=== PATIENT | female | born 1955 | race Caucasian/White ===

== ENCOUNTER → 2024-02-29 09:04 | Day surgery (SDC) | payer MEDICARE, OTHER, SELFPAY ==
[2024-02-29 10:00] VITALS: BMI 43.5
== END ==
LOC: CATH 09:04
PROVIDERS: ATTENDING PHYSICIAN Internal Medicine; FAMILY PHYSICIAN Internal Medicine; OTHER PHYSICIAN Internal Medicine Cardiovascular Disease
DX: I48.0 Paroxysmal atrial fibrillation (principal); I10 Essential (primary) hypertension; E78.00 Pure hypercholesterolemia, unspecified; R06.02 Shortness of breath; Z79.01 Long term (current) use of anticoagulants
CPT/HCPCS: 92960; 93005

== ENCOUNTER 2024-04-24 13:30 | Emergency (ER) | payer MEDICARE, OTHER, SELFPAY ==
[2024-04-24] VITALS (16 sets, daily range): BP systolic 110–164; BP diastolic 49–143
[2024-04-24 13:50] LABS: % Basophils 0.4 % (0-2); % Eosinophils 0.9 % (0-6); % Immature Granulocytes 0.4 % (0-0.5); % Lymphocytes 23.2 % (20.5-51.1); % Monocytes 11.2 % (1.7-9.3); % Neutrophils 63.9 % (42.2-75.2); Absolute Eosinophils 0.1 10^3/uL (0-0.7); Absolute Lymphocytes 1.8 10^3/uL (1.2-3.4); Absolute Monocytes 0.9 10^3/uL (0.1-0.6); Hematocrit 38.7 % (37.0-47.0); Hemoglobin 13.4 g/dL (12.0-16.0); Mean Corp Hgb Conc. 34.6 g/dL (33.0-37.0); Mean Corpuscular Hgb 27.4 pg (27.0-31.0); Mean Corpuscular Volume 79.1 fL (81.0-99.0); Mean Platelet Volume 10.2 fL (7.4-10.4); Nucleated Red Blood Cells % 0 %; Platelet Count 304 10^3/uL (130-400); Red Blood Cell Count 4.89 10^6/uL (4.20-5.40); Red Cell Dist. Width 14.4 % (11.5-14.5); White Blood Cell Count 7.8 10^3/uL (4.8-10.8)
[2024-04-24 14:09] LABS: ALT (SGPT) 22 U/L (0-35); AST (SGOT) 22 U/L (14-36); Albumin 4.2 g/dl (3.5-5.0); Alkaline Phosphatase 113 U/L (38-126); Blood Urea Nitrogen 13 mg/dl (7-17); Calcium 9.8 mg/dl (8.4-10.2); Carbon Dioxide 24 mmol/L (22-30); Chloride 106 mmol/L (98-107); Glucose 116 mg/dl (70-99); Sodium 140 mmol/L (135-145); Total Bilirubin 0.5 mg/dl (0.2-1.3); Total Protein 6.8 g/dl (6.3-8.2); eGFR > 60.00
--- NOTE | 2024-04-24 16:28 | ED.GENMED ---
History of Present Illness
<Angy Menezes PA-C - Last Filed: 04/24/24 20:21>
General
Chief Complaint: Heart Rate Problem
Source: patient
Exam Limitations: none
Time Seen by Provider: 04/24/24 16:27
Travel History
Have you had any contact with someone who has COVID-19?: No
Do you have any symptoms of coronavirus? Fever > 100 degrees, chills, cough, shortness of breath, sore throat, loss of taste or smell, muscle aches, or headache?: No
History of Present Illness
History of Present Illness:
68-year-old female with past medical history of paroxysmal A-fib on Eliquis, CHF on Lasix, asthma presenting emergency department today with concerns of exertional shortness of breath for the past week. Patient states that she is no shortness of
breath at rest. Patient states that she feels this way when she is in A-fib. Patient went in A-fib for the first time last year. She had some heart failure at that time as well. Patient has been on Lasix ever since. Patient states that she has
had a dry cough and chills but no fever, no chest pain. Patient denies any runny nose or sore throat. Patient states that occasionally she is able to feel some palpitations. Patient denies any increase in her lower extremity swelling. Patient is
social alcohol use, denies daily alcohol use.
Review of Systems
<Angy Menezes PA-C - Last Filed: 04/24/24 20:21>
Review of Systems
All Other Systems: ROS reviewed and negative except as documented in HPI and ROS
Phy Exam
<Angy Menezes PA-C - Last Filed: 04/24/24 20:21>
Physical Exam
Physical Exam:
General: Patient is well appearing and in no acute distress; non-toxic
Skin: Warm and dry, no rashes or lesions
Head: Normocephalic, atraumatic
Eyes: Sclera non-icteric. EOMs intact.
Cardiac: Heart rate is irregularly irregular
Peripheral Vascular: Mild pitting edema noted to ankles bilaterally. 2+ dorsalis pedis pulses noted bilaterally
Pulm: Increased respiratory rate but no respiratory distress. Patient is not hypoxic. No wheezes, rales, rhonchi noted on exam.
Abdomen: No abdominal tenderness
Neuro: CN II-XII intact, no focal neurologic deficits.
Psychiatric: Appropriate mood and affect.
Course
<Angy Menezes PA-C - Last Filed: 04/24/24 20:21>
Orders/Labs/Results
Orders:
Orders
04/24/24 13:33
Electrocardiogram (*1) Urgent
Reason for Study: Palpitations
EKG- Treatment ONCE
04/24/24 13:41
Complete Blood Count/With Diff Urgent
Comprehensive Metabolic Panel Urgent
04/24/24 16:44
CR Chest - 2 Views Urgent
Comment:
Reason For Exam: shortness of breath
04/24/24 16:52
Diltiazem HCl [Cardizem] 10 mg IV NOW STA
04/24/24 17:00
Diltiazem 125 mg/125 ml Nss [Cardizem] 125 mg in 125 ml IV PER PROTOCOL
Initial dose in mg/hr, then titrate:: 5
Titrate to keep:: Heart rate 80-100 bpm
Titrate by mg/hr:: 5 mg/hr
Frequency of titrations (minutes):: 15
Maximum dose in mg/hr:: 15
04/24/24 17:15
NT-proBNP Urgent
Troponin I Urgent
04/24/24 17:32
Add On- LAB Urgent
Tests Added?: troponin
04/24/24 18:52
ASA Classification Routine
Propofol [Diprivan] 50 mg IV NOW STA
04/24/24 19:53
Electrocardiogram (*1) Urgent
Reason for Study: Abnormal EKG
EKG- Treatment ONCE
Abnormal Lab Results
04/24/24
13:41
MCV 79.1 L fL
(81.0-99.0)
Absolute Monos (auto) 0.9 H 10^3/uL
(0.1-0.6)
Monocytes % 11.2 H %
(1.7-9.3)
Glucose 116 H mg/dl
(70-99)
04/24/24 13:41
04/24/24 13:41
Vital Signs
Initial and Last Documented VS:
Initial Vital Signs
Temp Pulse Resp Pulse Ox
98.9 F 104 18 97
04/24/24 13:32 04/24/24 13:32 04/24/24 13:32 04/24/24 13:32
Last Documented Vital Signs
Temp Pulse Resp BP Pulse Ox
98.6 F 120 21 142/101 98
04/24/24 19:49 04/24/24 19:49 04/24/24 19:49 04/24/24 19:49 04/24/24 19:49
<Odell Dalton, DO - Last Filed: 04/24/24 20:14>
Orders/Labs/Results
Orders:
Orders
04/24/24 13:33
Electrocardiogram (*1) Urgent
Reason for Study: Palpitations
EKG- Treatment ONCE
04/24/24 13:41
Complete Blood Count/With Diff Urgent
Comprehensive Metabolic Panel Urgent
04/24/24 16:44
CR Chest - 2 Views Urgent
Comment:
Reason For Exam: shortness of breath
04/24/24 16:52
Diltiazem HCl [Cardizem] 10 mg IV NOW STA
04/24/24 17:00
Diltiazem 125 mg/125 ml Nss [Cardizem] 125 mg in 125 ml IV PER PROTOCOL
Initial dose in mg/hr, then titrate:: 5
Titrate to keep:: Heart rate 80-100 bpm
Titrate by mg/hr:: 5 mg/hr
Frequency of titrations (minutes):: 15
Maximum dose in mg/hr:: 15
04/24/24 17:15
NT-proBNP Urgent
Troponin I Urgent
04/24/24 17:32
Add On- LAB Urgent
Tests Added?: troponin
04/24/24 18:52
ASA Classification Routine
Propofol [Diprivan] 50 mg IV NOW STA
04/24/24 19:53
Electrocardiogram (*1) Urgent
Reason for Study: Abnormal EKG
EKG- Treatment ONCE
Abnormal Lab Results
04/24/24
13:41
MCV 79.1 L fL
(81.0-99.0)
Absolute Monos (auto) 0.9 H 10^3/uL
(0.1-0.6)
Monocytes % 11.2 H %
(1.7-9.3)
Glucose 116 H mg/dl
(70-99)
04/24/24 13:41
04/24/24 13:41
Vital Signs
Initial and Last Documented VS:
Initial Vital Signs
Temp Pulse Resp Pulse Ox
98.9 F 104 18 97
04/24/24 13:32 04/24/24 13:32 04/24/24 13:32 04/24/24 13:32
Last Documented Vital Signs
Temp Pulse Resp BP Pulse Ox
98.6 F 120 21 142/101 98
04/24/24 19:49 04/24/24 19:49 04/24/24 19:49 04/24/24 19:49 04/24/24 19:49
Procedures
<Angy Menezes PA-C - Last Filed: 04/24/24 20:21>
Cardioversion
Indication:: Afib
Performed by:: Odell Dalton DO
Synchronized?: Yes
Energy Used: 150 joules
Number of attempts: 1
Successful?: Yes
ASA Risk Score: Class II
Any reaction or bad outcome to prior sedation/anesthesia?: No history of a reaction
Sedation level to be attained: moderate
Chart and allergies reviewed: Yes
Patient reassessed prior to sedation: Yes
Time out completed at (validating right patient & procedure): 19:47
History of difficult intubation: No
Airway free of obstruction: No
Patient has a gag reflex: Yes
Patient is able to open mouth: Yes
Patient has no dentures: Yes
Patient has no loose teeth: Yes
Medication administered by Provider during Moderate Sedation: IV Propofol (mg)
Total dose administered: 60
Time drug administered: 19:49
Start Time: 19:49
Stop Time: 19:59
<Angy Menezes PA-C - Last Filed: 04/24/24 20:21>
MDM/Problems Addressed
Differential Diagnosis Includes:
Differentials include atrial fibrillation, a flutter, sinus tachycardia, asthma exacerbation, CHF exacerbation
MDM/Problems Addressed:
shortness of breath
Chronic conditions affecting care:
A-fib on Eliquis, CHF on Lasix
<Angy Menezes PA-C - Last Filed: 04/24/24 20:21>
*Pulse Oximetry
Patient hypoxic: no
*Rn Clinical Quality Interpretation
Rate: tachycardiac
Interpretation: abnormal
Heart Rate: 120
Rhythm: a-fib
<Odell Dalton DO - Last Filed: 04/24/24 20:14>
*Critical Care Note
Total Time (30-74mins, 75-104mins- exclusive of procedures): 35
comment:
Critical care statement: A total of 35 minutes of critical care time was provided for this patient. This includes management of unstable vital signs, evaluation of the patient at bedside, reviewing the patient's pertinent medical records, discussion
with consultants, review of old EKGs and review of pertinent medical records. This time with separate from time utilized to perform the aforementioned documented procedures
<Angy Menezes PA-C - Last Filed: 04/24/24 20:21>
Patient Management
Escalation/DeEscalation of care consider admission/obs:
68-year-old female with past medical history of paroxysmal A-fib on Eliquis, CHF on Lasix presenting emergency department today due to shortness of breath. Patient states that she gets short of breath with exertion and when she goes into A-fib.
Patient noticed that on her Apple Watch she her rate was high. Patient was found to be in A-fib with RVR here. Heart rate remained in the 120s to 130s despite diltiazem drip. Patient follows with Dr. Granados. Patient has a history of [address] Sky was consulted and recommends a cardioversion again and then will follow-up for likely repeat ablation.
ED Attending Note
<Angy Menezes PA-C - Last Filed: 04/24/24 20:21>
-
Portions of this chart may have been created with voice recognition software.� Occasional wrong word or��sound alike� substitutions may have occurred due to the inherent limitations of voice recognition software.
<Odell Dalton DO - Last Filed: 04/24/24 20:14>
ED Attending Note
Patient seen and examined by attending physician: Yes
I performed a history and physical exam of patient and discussed management with resident, I reviewed resident's note and agree with documented findings and plan of care.: Yes
ED Attending Note:
I have reviewed and agree with history of plan by Angy Menezes. Discussed with Dr. Sky, who recommended cardioversion and follow-up for ablation. Patient tolerated ablation well. Cardizem stopped prior to cardioversion,
Discharge Plan
Departure
Patient Disposition: Home (Routine Discharge)
Date of Disposition: 04/24/24
Time of Disposition: 20:17
Patient with high blood pressure during this ER visit?: Yes
Condition: Good
Discharge Problem:
Atrial fibrillation with RVR
Instructions: Atrial Fibrillation (DC), Procedural Sedation, Adult ED, BLOOD PRESSURE
Prescriptions:
No Action
metoprolol succinate 50 mg Tablet Extended Release 24 Hr
50 mg PO DAILY
simvastatin 10 mg Tablet
10 mg PO HS
omeprazole 40 mg Capsule,Delayed Release(Dr/Ec)
40 mg PO DAILY
albuterol sulfate 90 mcg/actuation Hfa Aerosol Inhaler
2 puff INHALATION R Q6 PRN (Reason: sob/wheezing)
doxycycline hyclate 20 mg Tablet
20 mg PO DAILY@1200
omega-3 fatty acids 500 mg Capsule
1,400 mg PO DAILY
gabapentin 100 mg capsule
100 mg PO HS
Eliquis 5 mg Tablet
5 mg PO BID 30 Days Qty: 60 0RF
Probiotic 10 billion cell Capsule
10,000 mmu cells PO HS
diltiazem HCl 240 mg capsule,extended release 24hr
360 mg PO DAILY
budesonide 0.5 mg/2 mL Suspension For Nebulization
0.5 mg INHALATION DAILY
furosemide 40 mg tablet
40 mg PO DAILY Qty: 90 3RF
Referrals:
Leif Christiansen MD [Family Provider] -
Jackelyn Granados MD [Active] - Call in 1-3 days for appt
Activity Restrictions/Additional Instructions:
Please call Dr. Heart's office tomorrow to schedule a follow up appointment.
PLEASE RETURN TO THE EMERGENCY DEPARTMENT SHOULD YOU EXPERIENCE CHEST PAIN, SHORTNESS OF BREATH, WEAKNESS, DIFFICULTY BREATHING, OR ANY OTHER CONCERNING SIGNS OR SYMPTOMS.
Interventions
Interventions:
*Risk Screen - Suicide Last Done: 04/24/24 15:53
*General Assessment Last Done: 04/24/24 15:53
*ED COVID-19 Vaccine History Last Done: 04/24/24 15:53
ED- Cardiac Assessment Last Done: 04/24/24 15:49
ED- Pulmonary Assessment Last Done: 04/24/24 15:49
Discharge Date and Time
Print Language: POLISH
[2024-04-24] MEDS: CARDIZEM 10 MG IV (17:22)
[2024-04-24] MEDS: CARDIZEM 125 IV (17:27)
[2024-04-24 18:07] LABS: NT-proBNP 1580 pg/ml; Troponin I < 0.012 ng/ml
[2024-04-24] MEDS: DIPRIVAN 50 MG IV (19:58)
== END 2024-04-25 00:58 | disposition home or self-care (01) ==
LOC: EMR 13:30
PROVIDERS: Emergency Medicine; Physician Assistant; EMERGENCY PHYSICIAN Emergency Medicine; FAMILY PHYSICIAN Internal Medicine
DX: I48.91 Unspecified atrial fibrillation (principal); R06.02 Shortness of breath; I49.1 Atrial premature depolarization; I50.9 Heart failure, unspecified; J45.909 Unspecified asthma, uncomplicated; Z79.01 Long term (current) use of anticoagulants
CPT/HCPCS: 99291; 92960; 99152; 96374; 96375; 96376; 71046; 80053; 83880; 84484; 85025; 93005

== ENCOUNTER 2024-06-20 12:49 | Emergency (ER) | payer MEDICARE, OTHER, SELFPAY ==
[2024-06-20] VITALS (7 sets, daily range): BP systolic 118–151; BP diastolic 73–97; BMI 46.3
[2024-06-20 13:43] LABS: % Basophils 0.5 % (0-2); % Eosinophils 1.3 % (0-6); % Immature Granulocytes 0.3 % (0-0.5); % Lymphocytes 22.1 % (20.5-51.1); % Neutrophils 66.8 % (42.2-75.2); Absolute Eosinophils 0.1 10^3/uL (0-0.7); Absolute Lymphocytes 1.6 10^3/uL (1.2-3.4); Absolute Monocytes 0.7 10^3/uL (0.1-0.6); Absolute Neutrophils 4.9 10^3/uL (1.4-6.5); Hematocrit 40.7 % (37.0-47.0); Hemoglobin 13.6 g/dL (12.0-16.0); Mean Corp Hgb Conc. 33.4 g/dL (33.0-37.0); Mean Corpuscular Volume 80.9 fL (81.0-99.0); Mean Platelet Volume 10.2 fL (7.4-10.4); Nucleated Red Blood Cells % 0 %; Platelet Count 267 10^3/uL (130-400); Red Blood Cell Count 5.03 10^6/uL (4.20-5.40); Red Cell Dist. Width 14.5 % (11.5-14.5); White Blood Cell Count 7.4 10^3/uL (4.8-10.8)
[2024-06-20 13:55] LABS: ALT (SGPT) 25 U/L (0-35); AST (SGOT) 24 U/L (14-36); Albumin 4.3 g/dl (3.5-5.0); Alkaline Phosphatase 115 U/L (38-126); Blood Urea Nitrogen 15 mg/dl (7-17); Calcium 9.7 mg/dl (8.4-10.2); Carbon Dioxide 28 mmol/L (22-30); Chloride 107 mmol/L (98-107); Estimated Creatinine Clearance 74 ml/min; Glucose 117 mg/dl (70-99); Potassium 3.9 mmol/L (3.5-5.1); Sodium 141 mmol/L (135-145); Total Bilirubin 0.7 mg/dl (0.2-1.3); Total Protein 6.6 g/dl (6.3-8.2); eGFR > 60.00
[2024-06-20 14:02] LABS: Troponin I < 0.012 ng/ml
--- NOTE | 2024-06-20 14:29 | ED.GENMED ---
History of Present Illness
<Sophia Robert PA-C - Last Filed: 06/21/24 10:13>
General
Chief Complaint: Cardiac Symptoms
Source: patient
Exam Limitations: none
Time Seen by Provider: 06/20/24 14:06
Nursing documentation reviewed up to this point in time: agreed with
History of Present Illness
History of Present Illness:
69 y/o F with h /o refractory afib on eliquis, dilt, metoprolol
here from pre-admissions testing for rapid afib with rate 130
pt has had 4 previous cardioversions and 1 ablation since diagnosis in april 2023
pt says she is scheduled to have a cardioversion by dr. ocampo next week and was getting her ekg when she was told to come over
she was not in any distress, has no chest pain, shortness of breath, leg swelling
she is asymptomatic at rest
has had hr in to the 130 with activity for weeks
no recent edema
Past History
<Sophia Robert PA-C - Last Filed: 06/21/24 10:13>
Past History
ED Past Medical History: Arrthythmia (afib), CHF, HTN and Hypercholesterolemia
Social History
Tobacco: Non-smoker
Alcohol: None
Drug: None
Review of Systems
<Sophia Robert PA-C - Last Filed: 06/21/24 10:13>
Review of Systems
Allergies reviewed?: Yes
All Other Systems: Not applicable
Phy Exam
<Sophia Robert PA-C - Last Filed: 06/21/24 10:13>
Physical Exam
Physical Exam:
GENERAL: Alert , in no apparent distress
EYE: pupils equal and reactive
NECK: Supple
ENT: o/p clr, mmm.
CARDIAC: irregularly irregular, no edema
LUNGS: Clear breath sounds bilaterally, no acute respiratory distress, no wheezes/rales/rhonchi
ABDOMEN: Soft, without focal tenderness, no r/g, no cvat, normal bowel sounds
NEUROLOGICAL: Alert and oriented, no focal neuro deficits
SKIN: Warm and dry, skin intact.
MUSCULOSKELETAL: No edema, well perfused. neg cindy's sign
PSYCH: Normal and appropriate interaction.
Course
<Sophia Robert PA-C - Last Filed: 06/21/24 10:13>
Orders/Labs/Results
Orders:
Orders
06/20/24
Electrocardiogram (*1) Stat
Reason for Study: Chest Pain
Comment: DONE
06/20/24 13:15
Complete Blood Count/With Diff Urgent
Comprehensive Metabolic Panel Urgent
NT-proBNP Urgent
Comment: BNP ADDED ON BY FLOOR 3:20PM 06-20-24
Troponin I Urgent
06/20/24 15:18
Add On- LAB Urgent
Tests Added?: bnp
CR Chest - 2 Views Urgent
Comment:
Reason For Exam: afib eval chf
Abnormal Lab Results
06/20/24
13:15
MCV 80.9 L fL
(81.0-99.0)
Absolute Monos (auto) 0.7 H 10^3/uL
(0.1-0.6)
Glucose 117 H mg/dl
(70-99)
06/20/24 13:15
06/20/24 13:15
Vital Signs
Initial and Last Documented VS:
Initial Vital Signs
Temp Pulse Resp BP Pulse Ox
98.3 F 121 18 128/79 98
06/20/24 13:06 06/20/24 13:06 06/20/24 13:06 06/20/24 13:06 06/20/24 13:06
Last Documented Vital Signs
Temp Pulse Resp BP Pulse Ox
98.0 F 103 20 136/76 99
06/20/24 17:21 06/20/24 17:21 06/20/24 17:21 06/20/24 17:21 06/20/24 17:21
<Bigg Rosa, DO - Last Filed: 06/20/24 16:54>
Orders/Labs/Results
Orders:
Orders
06/20/24
Electrocardiogram (*1) Stat
Reason for Study: Chest Pain
Comment: DONE
06/20/24 13:15
Complete Blood Count/With Diff Urgent
Comprehensive Metabolic Panel Urgent
NT-proBNP Urgent
Comment: BNP ADDED ON BY FLOOR 3:20PM 06-20-24
Troponin I Urgent
06/20/24 15:18
Add On- LAB Urgent
Tests Added?: bnp
CR Chest - 2 Views Urgent
Comment:
Reason For Exam: afib eval chf
Abnormal Lab Results
06/20/24
13:15
MCV 80.9 L fL
(81.0-99.0)
Absolute Monos (auto) 0.7 H 10^3/uL
(0.1-0.6)
Glucose 117 H mg/dl
(70-99)
06/20/24 13:15
06/20/24 13:15
Vital Signs
Initial and Last Documented VS:
Initial Vital Signs
Temp Pulse Resp BP Pulse Ox
98.3 F 121 18 128/79 98
06/20/24 13:06 06/20/24 13:06 06/20/24 13:06 06/20/24 13:06 06/20/24 13:06
Last Documented Vital Signs
Temp Pulse Resp BP Pulse Ox
98.0 F 103 20 136/76 99
06/20/24 17:21 06/20/24 17:21 06/20/24 17:21 06/20/24 17:21 06/20/24 17:21
<Sophia Robert PA-C - Last Filed: 06/21/24 10:13>
MDM/Problems Addressed
Differential Diagnosis Includes:
afib with rvr, afib rate controlled, chf
MDM/Problems Addressed:
69 y//o F with h/o afib on eliquis, metoprolol, dilt, lasix
has been cardioverted x 5 since diagnosis 05/20 and 1 ablation; went back into afib 05/30 after last cardioversion was march
was at pre-op testing for her labs for her scheduled cardioversion next week and when they did her ekg she had rate of 130 so they sent her;
resting she is 90s mostly, maybe low 100s at most, no distress, no signs of failure,
she feels well
d/w dr. cardozo who saw pt and recommended cxr and BNP and likely d/c hoem with expedited cardioversion tomorrow vs. admit to cards for cardioversion;
s/o to dr rosa
<Sophia Robert PA-C - Last Filed: 06/21/24 10:13>
*Critical Care Note
Total Time (30-74mins, 75-104mins- exclusive of procedures): Not Applicable
ED Attending Note
<Sophia Robert PA-C - Last Filed: 06/21/24 10:13>
-
Portions of this chart may have been created with voice recognition software.� Occasional wrong word or��sound alike� substitutions may have occurred due to the inherent limitations of voice recognition software.
<Bigg Rosa DO - Last Filed: 06/20/24 16:54>
ED Attending Note
Patient seen and examined by attending physician: Yes
I performed the substantive portion of visit, reviewed & personally made and approve the management plan that is documented in note by myself or BIGG.: Yes
ED Attending Note:
I have seen and evaluated the patient with a [id number] encounter. I have spoken to the advance practicer provider and involved in the medical history, the physical exam, medical decision making.
Evaluation and management service: agree unless noted differently below.
Results interpretation: agree unless noted differently below.
Focused HPI: 69-year-old female with a history of A-fib presents for evaluation of A-fib with RVR. However, patient now rate controlled on arrival to the emergency department. She denies chest pain or shortness of breath
Physical exam: Sitting in bed comfortably. No acute distress
Medical Decision Making: Cardiology aware. They did evaluate. She was post to have outpatient cardioversion in the next several days but they did expedite the cardioversion for tomorrow. Patient feels comfortable going home
Discharge Plan
Departure
Patient Disposition: Home (Routine Discharge)
Date of Disposition: 06/20/24
Time of Disposition: 16:53
Patient with high blood pressure during this ER visit?: No
Discharge Problem:
Atrial fibrillation with RVR
Prescriptions:
No Action
metoprolol succinate 50 mg Tablet Extended Release 24 Hr
50 mg PO BID
simvastatin 10 mg Tablet
10 mg PO HS
omeprazole 40 mg Capsule,Delayed Release(Dr/Ec)
40 mg PO DAILY
doxycycline hyclate 20 mg Tablet
20 mg PO DAILY@1200
omega-3 fatty acids 500 mg Capsule
1,400 mg PO DAILY
Eliquis 5 mg Tablet
5 mg PO BID 30 Days Qty: 60 0RF
Probiotic 10 billion cell Capsule
10,000 mmu cells PO HS
diltiazem HCl 240 mg capsule,extended release 24hr
360 mg PO DAILY
furosemide 40 mg tablet
40 mg PO DAILY Qty: 90 3RF
magnesium 200 mg Tablet
200 mg PO HS
Referrals:
Leif Christiansen MD [Family Provider] -
Activity Restrictions/Additional Instructions:
Please keep your cardioversion appointment tomorrow and please return for worsening symptoms.
Interventions
Interventions:
*Risk Screen - Suicide Last Done: 06/20/24 13:36
*General Assessment Last Done: 06/20/24 13:36
*Neglect/Abuse Screening Last Done: 06/20/24 17:20
ED- Fall Risk Assessment Last Done: 06/20/24 13:38
*ED COVID-19 Vaccine History Last Done: 06/20/24 13:36
*Nursing Disposition Last Done: 06/20/24 17:21
ED- Pulmonary Assessment Last Done: 06/20/24 13:38
ED- Cardiac Assessment Last Done: 06/20/24 13:38
Discharge Date and Time
Discharge Date/Time: 06/20/24 17:22
Print Language: BENGALI
--- NOTE | 2024-06-20 15:28 | CON.CAR ---
Addendum entered and electronically signed by Estevan Velazquez MD 06/20/24 17:25:
I saw and examined the patient.
The HOUSEHOLD COORDINATOR's note was reviewed and I agree with the note.
69 y/o female with persistent AFIB on Eliquis (hx PVI, ), recurrent afib and CV post PVI, , HTN, HLD, and ERLINDA on CPAP who has been in AFIB since 05/30/24 Viktor had accelerated rates being evaluated in preadmission testing so sent to ER but HR
improved. viktor otherwise stable . No new symptoms and no distress. She was scheduled for CV in a week. We discussed tx options including admission. Overall it was felt that she was stable for continued plans for outpatient cardioversion but we
expidited her CV for tomorrow. Viktor would like to go hpome and return for outpatient CV. Plan for discharge with plan for CV tomorrow.
Original Note:
Consultation
Consultation Request
Date/Time Consultation Requested: 06/20/24 1430
Date/Time Consultation Performed: 06/20/24 1500
Requesting Provider: Sophia MULLER
Performing Provider: Kamille TAM for Dr. Velazquez
Reason for Consultation: AFIB
Medical History
-
Chief Complaint: AFIB
History of Present Illness:
69 y/o female with persistent AFIB on Eliquis (hx PVI, CV- most recent 02/29/24 and 04/24/24), HTN, HLD, and ERLINDA on CPAP who has been in AFIB since 05/30/24 and was getting pre-admission testing for planned cardioversion next week. However, in
preadmission testing, HR was in 130's, BP was reported as soft, and she reported some SOB, so was sent to ER. In ER, HR is mostly in 90's at rest. She is in no distress. She is compliant with all medicines including Eliquis. She has had more BAÑUELOS
over the past week.
Past Medical History
Past Medical History: Arrhythmias, HTN, Hypercholesterolemia and Other (as above)
Social History
Tobacco: Non-Smoker
Family History
Family History: Reviewed & Not Pertinent
Allergies / Home Medications
Allergy/AdvReac Type Severity Reaction Status Date / Time
latex Allergy Unknown Unknown Verified 06/20/24 13:11
�Medication �Instructions �Recorded �Confirmed �Type
doxycycline hyclate 20 mg tablet 20 mg PO DAILY@1200 Ocular Rosacea 05/12/23 06/18/24 History
metoprolol succinate 50 mg 50 mg PO BID Blood Pressure 05/12/23 06/18/24 History
tablet,extended release 24 hr
omega-3 fatty acids 500 mg capsule 1,400 mg PO DAILY Supplement 05/12/23 06/18/24 History
omeprazole 40 mg capsule,delayed 40 mg PO DAILY Gastrointestinal 05/12/23 06/18/24 History
release Issue
simvastatin 10 mg tablet 10 mg PO HS High Cholesterol 05/12/23 06/18/24 History
apixaban 5 mg tablet (Eliquis) 5 mg PO BID 30 days #60 tabs 05/14/23 06/18/24 Rx
Lactobacillus acidophilus 10 10,000 mmu cells PO HS 09/15/23 06/18/24 History
billion cell capsule (Probiotic)
diltiazem HCl 240 mg 360 mg PO DAILY 09/15/23 06/18/24 History
capsule,extended release 24 hr
furosemide 40 mg tablet 40 mg PO DAILY #90 tabs 10/24/23 06/18/24 Rx
magnesium 200 mg tablet 200 mg PO HS 06/18/24 06/18/24 History
Review of Systems
-
History Source: Patient
All other systems: Negative unless noted
Respiratory: Trouble Breathing
Physical Exam
Vital Signs
Temp Pulse Resp BP Pulse Ox
98.3 F 107 23 121/73 98
06/20/24 13:06 06/20/24 15:00 06/20/24 15:00 06/20/24 14:00 06/20/24 14:45
Lab Results
07/24/24 13:15
06/20/24 13:15
Troponin I < 0.012 ng/ml 06/20/24 13:15
Physical Exam
General: Well Developed, Well Nourished and No Apparent Distress
HEENT: Normocephalic and Anicteric
Respiratory: Clear and Non Labored Respirations
Cardiac: Irregular Rhythm
Musculoskeletal: Edema (chronic mild BLE edema)
Skin: Warm and Dry
Neuro: AO x 3
Psych: Calm
Impression / Plan
-
Persistent AFIB:
-rates elevated at times, but okay in ER
-continue diltiazem and metoprolol
-continue Eliquis for OAC- she has missed no doses
-will try and expedite OP cardioversion
-follow-up with Dr. Sky as planned to discuss redo ablation
BAÑUELOS:
-likely related to her AFIB
-check CXR and BNP, but does not appear volume overloaded to my assessment
ERLINDA:
-continue CPAP
HTN:
-stable
-continue meds
Data Reviewed
-
EKG: Tracing Personally Visualized and interpreted (AFIB with RVR)
Labs: Labs Reviewed by me
[2024-06-20 16:47] LABS: NT-proBNP 1140 pg/ml
== END 2024-06-20 17:22 | disposition home or self-care (01) ==
LOC: EMR 12:49
PROVIDERS: Emergency Medicine; EMERGENCY PHYSICIAN Student in an Organized Health Care Education/Training Program; FAMILY PHYSICIAN Internal Medicine; OTHER PHYSICIAN Internal Medicine Cardiovascular Disease
DX: I48.19 Other persistent atrial fibrillation (principal); I11.0 Hypertensive heart disease with heart failure; I50.9 Heart failure, unspecified; Z79.01 Long term (current) use of anticoagulants
CPT/HCPCS: 99285; 71046; 80053; 83880; 84484; 85025; 93005

== ENCOUNTER 2024-06-21 07:29 | Day surgery (SDC) | payer MEDICARE, OTHER, SELFPAY ==
[2024-06-20 11:04] VITALS: BMI 45.9
--- NOTE | 2024-06-21 09:06 | ITS.CL.CARDI ---
[facility] - Cardioversion
Cardioversion
Procedure Report:
Date of Procedure:
Procedure: Cardioversion
Indication: Symptomatic atrial fibrillation
Performing Physician: Tristen Sylvester MD
Technique: The patient was brought to the holding area. Signed informed consent was obtained. A time out was called and performed. The patient was anesthetized by the anesthesia service. Anticoagulation status was reviewed and appropriate. R2 pads
were placed anteriorly and posteriorly. A 200 J synchronized biphasic shock restored normal sinus rhythm without significant bradycardia. There were no complications.
Conclusion: Uncomplicated cardioversion from atrial fibrillation to sinus rhythm.
Recommendation: Routine post cardioversion care. Continue [facility] anticoagulation.
== END 2024-06-21 10:00 | disposition home or self-care (01) ==
LOC: CATH 07:29
PROVIDERS: ATTENDING PHYSICIAN Internal Medicine Cardiovascular Disease; FAMILY PHYSICIAN Internal Medicine; OTHER PHYSICIAN Internal Medicine Cardiovascular Disease
DX: I48.0 Paroxysmal atrial fibrillation (principal); I11.0 Hypertensive heart disease with heart failure; I50.33 Acute on chronic diastolic (congestive) heart failure; E78.5 Hyperlipidemia, unspecified; K21.9 Gastro-esophageal reflux disease without esophagitis; G47.33 Obstructive sleep apnea (adult) (pediatric); J45.909 Unspecified asthma, uncomplicated; E66.01 Morbid (severe) obesity due to excess calories; Z68.42 Body mass index [BMI] 45.0-49.9, adult; Z82.49 Family history of ischemic heart disease and other diseases of the circulatory system; Z79.01 Long term (current) use of anticoagulants
CPT/HCPCS: 92960; 93005

== ENCOUNTER → 2024-07-17 10:36 | Outpatient (REF) | payer MEDICARE, OTHER, SELFPAY ==
[2024-07-17 11:30] LABS: % Basophils 0.4 % (0-2); % Immature Granulocytes 0.4 % (0-0.5); % Lymphocytes 21.2 % (20.5-51.1); Absolute Eosinophils 0.1 10^3/uL (0-0.7); Absolute Lymphocytes 1.5 10^3/uL (1.2-3.4); Absolute Monocytes 0.7 10^3/uL (0.1-0.6); Absolute Neutrophils 4.8 10^3/uL (1.4-6.5); Hematocrit 41.9 % (37.0-47.0); Hemoglobin 13.9 g/dL (12.0-16.0); Mean Corp Hgb Conc. 33.2 g/dL (33.0-37.0); Mean Corpuscular Hgb 27.2 pg (27.0-31.0); Mean Platelet Volume 10.8 fL (7.4-10.4); Nucleated Red Blood Cells % 0 %; Platelet Count 306 10^3/uL (130-400); Red Blood Cell Count 5.11 10^6/uL (4.20-5.40); Red Cell Dist. Width 14.5 % (11.5-14.5); White Blood Cell Count 7.1 10^3/uL (4.8-10.8)
[2024-07-17 12:13] LABS: ALT (SGPT) 25 U/L (0-35); AST (SGOT) 26 U/L (14-36); Albumin 4.5 g/dl (3.5-5.0); Alkaline Phosphatase 122 U/L (38-126); Blood Urea Nitrogen 14 mg/dl (7-17); Calcium 9.8 mg/dl (8.4-10.2); Carbon Dioxide 26 mmol/L (22-30); Chloride 106 mmol/L (98-107); Glucose 125 mg/dl (70-99); Potassium 3.8 mmol/L (3.5-5.1); Sodium 142 mmol/L (135-145); Total Bilirubin 0.7 mg/dl (0.2-1.3); Total Protein 6.9 g/dl (6.3-8.2); eGFR > 60.00
== END ==
LOC: SDSPAT 10:36
PROVIDERS: ATTENDING PHYSICIAN Internal Medicine Cardiovascular Disease; OTHER PHYSICIAN Internal Medicine Cardiovascular Disease
DX: Z01.818 Encounter for other preprocedural examination (principal); I48.0 Paroxysmal atrial fibrillation
CPT/HCPCS: 36415; 80053; 85025

== ENCOUNTER 2024-07-23 08:14 | Day surgery (SDC) | payer MEDICARE, OTHER, SELFPAY ==
[2024-07-23] VITALS (20 sets, daily range): BP systolic 89–161; BP diastolic 44–121; BMI 44.4
--- NOTE | 2024-07-23 09:10 | PTCARENOTE ---
Pt here for a PVI. Pt's blood pressure on right arm is 161/121. Repeat blood pressure on right arm is 147/101. Blood pressure on left arm 130/73. Blood pressure repeated on right arm 139/110. Dr Cao, anesthesiologist, made aware as well as
Chiqui TAM. No treatment ordered at this time. Will continue to monitor.
--- NOTE | 2024-07-23 11:31 | PTCARENOTE ---
Dr Sky also made aware of pt's blood pressures in right and left arms. No treatment ordered at this time. Will continue to monitor.
[2024-07-23 12:56] LABS: ACT-LR - POC 294 Seconds (116-155)
[2024-07-23 13:20] LABS: ACT-LR - POC 308 Seconds (116-155)
--- NOTE | 2024-07-23 13:59 | ITS.CL.ABL ---
Ammunition Officer - Ablation
Ablation
Procedure Report:
AFIB ablation:
Ms. Jordan is a very pleasant 69 yr old woman with symptomatic persistent AF s/p PVI in 2022 presented with recurrent atrial fibrillation and atypical flutter and presented today to the EP lab for atrial fibrillation / flutter redo ablation.
Date of the Procedure:
07/23/2024
Indications:
Persistent atrial fibrillation / atypical atrial flutter
Pre-Operative Diagnosis:
Persistent atrial fibrillation / atypical atrial flutter
Post-Operative Diagnosis:
Persistent atrial fibrillation / atypical atrial flutter
Procedure Performed:
Atrial fibrillation ablation with Pulsed-Field approach for pulmonary vein isolation
Roof line formation for atypical flutter ablation
Posterior wall isolation
Performing Physician:
Porfirio Sky MD
Assistants:
EP staff
Anesthesia:
See anesthesia records
Detailed Description of the Procedure:
Written informed consent was obtained from the patient after a full explanation of the risks and benefits of the procedure including the risks of sedation and anesthesia.
The patient was brought to the electrophysiology laboratory in stable condition in fasting state. Continuous electrocardiographic and hemodynamic monitoring was initiated.
The initial rhythm was atrial fibrillation.
The procedure site was meticulously prepared with surgical scrub and allowed to dry with no pooling. Sterile draping was applied to cover the procedure site. The image intensifier was draped with sterile bag and positioned over the patient. After
infusion of local anesthetic, vascular access was obtained under ultrasound guidance and sheaths were placed over guide wire as detailed below.
Sheath and Catheter Placement:
The following catheters / sheaths were placed
Sheaths:
��������� 15Fr steerable sheath (FlexCath Cross�, Simulated [employer]) in right femoral vein in right femoral vein
��������� 9Fr in right femoral vein
��������� 7Fr in right femoral vein
Catheters:
��������� MAGALY HD Grid mapping catheter � at locations of RA, LA
��������� PulseSelect� PFA catheter
��������� ICE catheter -AcuNav - at locations of RA, SVC, and RV.
��������� Decapolar Bard catheter in RA and CS
Intracardiac ECHO:
An 8-Scottish AcuNav intracardiac ECHO (ICE) probe was advanced through the 9-Scottish sheath in the right femoral vein into the right atrium under fluoroscopic and ICE ultrasound image guidance and a baseline ECHO study was performed. The left atrial
size was dilated. There was moderate tricuspid regurgitation. The aortic valve was grossly normal. There was normal left ventricular systolic functions. There is trace pericardial effusion. All the four veins were identified and has flow identified.
During the procedure, ICE was used for monitoring of complications, guidance of trans-septal puncture, monitor the catheter position and tracking ablation lesions. No change in the pericardial space noted throughout the procedure.
Trans-septal Puncture:
Heparin was initiated and infused to maintain appropriate ACT. A J-tipped guidewire was advanced through the 8-Scottish sheath in the right femoral vein into the superior vena cava under fluoroscopic and ICE guidance. The 8-Scottish sheath was exchanged
for a FlexCath Cross sheath which was advanced into the superior vena cava. An MediSapiens transseptal access system was utilized to perform the trans-septal puncture. The apparatus was withdrawn until it was in contact with the fossa ovalis. The
position was adjusted based on fluoroscopy and ultrasound images from ICE. Under fluoroscopic, hemodynamic and ICE ultrasound guidance, left atrium was cannulated by advancing the needle. Once atrial septum was cannulated, the needle was pulled back
and a guide wire was advanced through the needle into the left atrium. The guide wire was advanced into the left superior pulmonary vein. Both the sheath and the dilator was advanced into the left atrium. The dilator with the needle was withdrawn.
Blood was aspirated from the FlexCath cross sheath and arterial blood confirmed. The sheath was flushed. Saline injection noted into the left atrium on ICE. The mapping catheter was advanced in the Agilis sheath into the left pulmonary vein. Left
atrial pressure was measured.
3D Electroanatomic Mapping:
Using the HD Grid catheter advanced through sheath into the left atrium, an electroanatomic map (EAM) of the left atrium was created using [employer] mapping system. The map was used for localization of catheter position and tacking of ablation
lesions. The EAM of the left atrium showed 4 pulmonary veins with two left sided and two right sided veins. The vein were silent in atrial fibrillation and once sinus rhythm was achieved, there were signals noted in the left sided carinal area,
There was extensive areas of low voltage noted in the left atrium with minimal electrical activity in the posterior wall.
The LA was dilated in size.
Following the EAM, preparation were made for ablation. The neuromuscular paralysis was reversed.
Ablation:
Ablation # 1: Atypical atrial flutter ablation:
There was a clear channel of electrical activity left in the posterior wall with multiple CFAE and AF areas on the roof significant scar noted on the roof with some residual electrical activity noted. This increased the risk of atrial flutter and
decision was made to create a roof line to block a slow conduction.
Using PulseSelect� pulsed field ablation system, a set of pulsefield ablations were placed on the roof line connecting the left superior pulmonary vein ablation lesions to the right superior pulmonary vein lesions rings.
Ablation # 2: Posterior wall isolation with the Box lesions set Formation:
There was a significant fractionation seen in the posterior wall and LA AF foci made it clear as the posterior wall is critical in maintaining the atrial fibrillation and the decision was made to isolate the posterior wall by creating a �Box�
lesions.
Using PulseSelect� pulsed field ablation system, a set of pulsefield ablations were placed on the posterior wall connecting the left inferior pulmonary vein ablation lesions to the right inferior pulmonary vein lesions rings.
Cardioversion:
Due to the persistence of atrial fibrillation during the case, the decision was made to proceed with a cardioversion followed by the remainder of the ablation as detailed below. Therefore, a 200J shock was delivered to the chest via Zoll patches
placed with congregational of sinus rhythm. The patient remained hemodynamically stable throughout.
Electroanatomic mapping of LA
Once the sinus rhythm achieved, the LA was mapped with HD grid in detail. There were areas of the LSPV and RSPV Johanna and ridge areas that were still connected and decision was made to apply further ablations. There was exit block present but was
noted to have entrance of the sinus signals to the carinal area.
Ablation # 3: Pulmonary vein Isolation:
Using PulseSelect� pulsed field ablation system, pulmonary vein isolation was achieved. First the ablation catheter was placed in the LSPV and ostial ablation lesions were performed in a counter clock hui approach all around the PV ostium
circumferentially. Then the catheter was placed on the antral location and multiple ablation lesions were placed circumferentially on the antrum of the vein.
In the similar fashion, the LIPV were isolated.
Post ablation Electroanatomic mapping:
Once ablation was completed, the EAM of the LA was done again in sinus rhythm with excellent demarcation of LA myocardium and isolated antral tissue. There was dissociated signals were noted in the veins as well.
EPS and Confirmation of the PVI and bidirectional block:
Following achievement of entrance block at the pulmonary veins, pacing from the HD catheter in each of the four veins at 10 milliamps for 2 milliseconds showed entrance and exit block. All PVI were rechecked at the end of the case and remained
isolated with dissociated and local capture with pacing. Entrance and exit block were demonstrated in all veins.
Posterior wall was also isolated with both entrance and exit block confirmed.
Procedure End
ICE study was done again that showed no epicardial accumulation. No complications noted.
Following the completion of the EP study, catheters were removed. Protamine 30 mg was given at the end of the procedure and ACT was checked repeatedly. The sheaths were removed and hemostasis achieved with VASCADE and manual compression.
Left atrial Pressure:
Pre-Procedure: Mean LA pressure was 19mmHg
Post-Procedure: Mean LA pressure was 18mmHg
Post-Procedure: Mean LR pressure was 11mmHg
Fluoro time:
4.6 min / DAP 17.1
Estimated Blood loss:
<10 cc
Specimens Removed:
None.
Implants / Devices:
None
Urine output:
None
Packs / Drains/ Tubes:
None
Instrument / Sponge Count Correct:
Yes
Complications of the Procedure:
None
Condition of Patient at Time of Transfer:
Hemodynamically stable with no neurological or vascular compromise.
Summary:
Successful atrial fibrillation ablation with Pulsed Field approach for pulmonary vein isolation
Figures from the Procedure:
Figure 1: The electroanatomic mapping (EAM) of the left atrium with bipolar voltage (purple indicates normal electrical activity with rodriguez as no myocardial muscle electric activity indicating a line of block or scar.
--- NOTE | 2024-07-23 14:51 | PTCARENOTE ---
Dr Sky at pt bedside speaking to pt.
--- NOTE | 2024-07-23 16:28 | W.PN.UPDATE ---
Update Note
Progress Note Update
Pt seen post PFA. Right groin site with vascade closure, no ht/bleeding, oob ambulating without difficulty. Post EKG SB/SR 50-60s, no acute changes. Resume eilqus tonight, continue other meds as before. Followup at [facility] as scheduled. Home later today
if groin site/tele remain stable.
== END 2024-07-23 16:40 | disposition home or self-care (01) ==
LOC: CATH 08:14
PROVIDERS: ATTENDING PHYSICIAN Internal Medicine Cardiovascular Disease; FAMILY PHYSICIAN Internal Medicine; OTHER PHYSICIAN Internal Medicine Cardiovascular Disease
DX: I48.19 Other persistent atrial fibrillation (principal); I48.4 Atypical atrial flutter; I07.1 Rheumatic tricuspid insufficiency; I10 Essential (primary) hypertension; E78.00 Pure hypercholesterolemia, unspecified; Z79.01 Long term (current) use of anticoagulants; Z79.899 Other long term (current) drug therapy
CPT/HCPCS: C1732; C1730; C1733; C1769; C1892; C1759; C1894; 76937; 85347; 86850; 86900; 86901; 93005; 93655; 93656; C1760

== ENCOUNTER 2024-11-27 08:17 | Day surgery (SDC) | payer MEDICARE, OTHER, SELFPAY ==
--- NOTE | 2024-11-27 09:43 | ITS.CL.CARDI ---
Pill Coater - Cardioversion
Cardioversion
Procedure Report:
Procedure: Direct current electrical cardioversion
Pre-operative diagnosis: Persistent atrial fibrillation
Post-operative diagnosis: Persistent atrial fibrillation status post DC cardioversion to sinus rhythm
Anesthesia: MAC
Attending Physician: Vel Duran MD
Procedure Description: The patient was brought to the electrophysiology laboratory in the fasting state. Adherence to anticoagulation regimen was confirmed. Informed consent was obtained from the patient prior to the start of the procedure.
Electrodes were placed on the patient and connected to an external defibrillator. Monitoring of blood pressure, ECG tracings, and pulse oximetry was initiated. The pads were applied to the patient in the anterior and posterior positions. The patient
was sedated by the anesthesiologist. A 200 joule biphasic synchronized shock was delivered to the patient under MAC anesthesia. Sinus rhythm was successfully restored. The patient recovered uneventfully from MAC anesthesia. There were no immediate
post-procedure complications. The patient left the lab in good condition. The attending physician was present throughout the entire procedure.
Impression: Successful direct current cardioversion with caodaism of sinus rhythm after one 200 joule biphasic synchronized shock.
== END 2024-11-27 09:40 | disposition home or self-care (01) ==
LOC: CATH 08:17
PROVIDERS: ATTENDING PHYSICIAN Internal Medicine Cardiovascular Disease; FAMILY PHYSICIAN Internal Medicine
DX: I48.19 Other persistent atrial fibrillation (principal); I48.4 Atypical atrial flutter; I10 Essential (primary) hypertension; E78.00 Pure hypercholesterolemia, unspecified; G47.33 Obstructive sleep apnea (adult) (pediatric); Z79.01 Long term (current) use of anticoagulants
CPT/HCPCS: 92960; 93005

== ENCOUNTER 2025-01-17 09:29 | Day surgery (SDC) | payer MEDICARE, OTHER, SELFPAY ==
--- NOTE | 2025-01-17 10:58 | ITS.CL.CARDI ---
Narrow Gauge Brakeman - Cardioversion
Cardioversion
Procedure Report:
Date of Procedure: 01/17/25
Procedure: Cardioversion
Indication: Symptomatic atrial fibrillation
Performing Physician: Joseph Sylvester MD
Technique: The patient was brought to the holding area. Signed informed consent was obtained. A time out was called and performed. The patient was anesthetized by the anesthesia service. Anticoagulation status was reviewed and appropriate. R2 pads
were placed anteriorly and posteriorly. A 200 J shock failed and then a 360J synchronized biphasic shock restored normal sinus rhythm without significant bradycardia. There were no complications.
Conclusion: Uncomplicated cardioversion from atrial fibrillation to sinus rhythm.
Recommendation: Routine post cardioversion care. Continue adjunct faculty for medical terminology anticoagulation.
== END 2025-01-17 11:30 | disposition home or self-care (01) ==
LOC: CATH 09:29
PROVIDERS: ATTENDING PHYSICIAN Internal Medicine Cardiovascular Disease; FAMILY PHYSICIAN Internal Medicine; OTHER PHYSICIAN Internal Medicine Cardiovascular Disease
DX: I48.91 Unspecified atrial fibrillation (principal); Z79.01 Long term (current) use of anticoagulants; I48.92 Unspecified atrial flutter
CPT/HCPCS: 92960; 93005

== ENCOUNTER 2025-06-13 06:39 | Day surgery (SDC) | payer MEDICARE, OTHER, SELFPAY | END 2025-06-13 14:23 | disposition home or self-care (01) | LOC: GI 06:39 | PROVIDERS: ATTENDING PHYSICIAN Internal Medicine | DX: Z12.11 Encounter for screening for malignant neoplasm of colon (principal); K57.30 Diverticulosis of large intestine without perforation or abscess without bleeding; K44.9 Diaphragmatic hernia without obstruction or gangrene; K31.7 Polyp of stomach and duodenum; K31.89 Other diseases of stomach and duodenum; K31.A0 Gastric intestinal metaplasia, unspecified; K20.90 Esophagitis, unspecified without bleeding; Z80.0 Family history of malignant neoplasm of digestive organs; Z13.810 Encounter for screening for upper gastrointestinal disorder; Z86.0100 Personal history of colon polyps, unspecified | CPT/HCPCS: 43251; 43239; G0105; 88305; 88342 ==

== ENCOUNTER 2025-08-18 13:46 | Emergency (ER) | payer MEDICARE, OTHER, SELFPAY ==
[2025-08-18 13:48] VITALS: BP 174/95
--- NOTE | 2025-08-18 14:35 | ED.GENMED ---
History of Present Illness
General
Chief Complaint: Fall
Source: patient
Exam Limitations: none
Time Seen by Provider: 08/18/25 14:03
History of Present Illness
History of Present Illness:
Patient tripped and fell. Hit the right side of her face head lip and tooth. Also hit her right wrist and right knee. No LOC. No syncope. Last tetanus is unknown. Patient is on Eliquis. No loss of consciousness no nausea or vomiting no neck
pain.
Past History
Past History
ED Past Medical History: Arrthythmia (afib), CHF, HTN and Hypercholesterolemia
Social History
Tobacco: Non-smoker
Alcohol: None
Drug: None
Review of Systems
Review of Systems
All Other Systems: Not applicable
Respiratory: Reports no symptoms
Cardiac: Reports no symptoms
ABD/GI: Reports no symptoms
Phy Exam
Physical Exam
Physical Exam:
TRAUMA EXAM:
VITAL SIGNS: Vital signs reviewed, cooperative
DISTRESS: No active disease
EYES: Pupils reactive, no orbital trauma
NOSE: No deformity or epistaxis
FACE AND SCALP: No scalp trauma, external canals no blood. 1.5 cm horizontal superficial laceration above the right eyebrow. Abrasion above the right lip. Small stellate less than 1 cm intraoral laceration. Mild tenderness to the right upper
anterior canine over the tooth is stable.
NECK: Supple nontender
BACK: Back nontender, pelvis stable to compression
RESPIRATORY: No distress, breath sounds normal, no tender chest wall
CARDIAC: No murmur, pulses equal and strong
ABDOMEN: Soft nontender bowel sounds normal
SKIN: Skin intact no bleeding, color normal
EXTREMITIES: Tenderness over the right patella. Able to straight leg raise. Able to bear full weight. All other extremities unremarkable except for the right wrist which has some diffuse tenderness to the distal radius. No snuffbox. Hand
nontender. Good distal pulses and color
NEUROLOGICAL: Alert, oriented, no motor deficits
PSYCH: Mood affect normal
Course
Orders/Labs/Results
Orders:
Orders
08/18/25 14:19
Knee, Right 4 or More Views [CR Knee- Right 4 Or More View*] Urgent
Comment:
Reason For Exam: trauma
Wrist, Right 3 Views [CR Wrist - Right Min 3 Views] Urgent
Comment:
Reason For Exam: trauma
08/18/25 14:[address]
CT Cervical Spine W/o Iv Contr Urgent
Comment:
Reason For Exam: trauma
CT Facial Bones W/o Iv Contras Urgent
Comment:
Reason For Exam: trauma
CT Head W/o Iv Contrast Urgent
Comment:
Reason For Exam: trauma
Tetanus/Diphth/Acelpertussis [Adacel] 0.5 ml IM .ONCE ONE
Vital Signs
Initial and Last Documented VS:
Initial Vital Signs
Temp Pulse Resp BP Pulse Ox
98.2 F 84 16 174/95 98
08/18/25 13:48 08/18/25 13:48 08/18/25 13:48 08/18/25 13:48 08/18/25 13:48
Last Documented Vital Signs
Temp Pulse Resp BP Pulse Ox
98.2 F 66 16 132/62 97
08/18/25 13:48 08/18/25 16:26 08/18/25 16:26 08/18/25 16:26 08/18/25 16:26
Procedures
Laceration Closure
Right upper eyebrow:
Status of Wound: clean
Size of Wound in cm: 1.5
Description of Wound Edges: sharp
Preparation: cleaned with saline
Revision/Debridement: routine- no revision
Wound exploration: explored to base- no FB
Type of Closure: Dermabond-skin glue
MDM/Problems Addressed
Differential Diagnosis Includes:
Not describing syncope. Clearly a trip and fall. Head injury on Eliquis. Will CT scan. Also some facial trauma. Based on mechanism will also CT cervical spine. From a wound standpoint we will Dermabond the right upper eyebrow laceration.
Intraoral laceration is small and should heal secondarily. Abrasion to the lip does not require treat for cleansing. X-ray of the right wrist and right knee. All other trauma related issues are stable
*Radiology
Radiology exam reviewed: radiology read reviewed (X-ray stable. No acute fractures. No bleed.)
*Pulse Oximetry
SaO2: 98
Oxygen Mode of Delivery: Room air
Patient hypoxic: no
*Critical Care Note
Total Time (30-74mins, 75-104mins- exclusive of procedures): Not Applicable
Update Note
Update Note:
Patient stable. Offered a splint to the right wrist. Patient would prefer to hold off. Reasonable. For discharge to follow-up
ED Attending Note
-
Portions of this chart may have been created with voice recognition software.� Occasional wrong word or��sound alike� substitutions may have occurred due to the inherent limitations of voice recognition software.
Discharge Plan
Departure
Patient Disposition: Home (Routine Discharge)
Date of Disposition: 08/18/25
Time of Disposition: 16:57
Patient with high blood pressure during this ER visit?: Yes
Discharge Problem:
Fall/head injury, Right wrist sprain, Right knee contusion, Multiple abrasions, Tooth injury
Instructions: Head Injury in Adults (DC), Skin Abrasions (DC), Wrist Sprain ED, BLOOD PRESSURE, Contusion
Prescriptions:
No Action
metoprolol succinate 50 mg Tablet Extended Release 24 Hr
50 mg PO BID
simvastatin 10 mg Tablet
10 mg PO HS
omeprazole 40 mg Capsule,Delayed Release(Dr/Ec)
40 mg PO DAILY
doxycycline hyclate 20 mg Tablet
20 mg PO DAILY@1400
Eliquis 5 mg Tablet
5 mg PO BID 30 Days Qty: 60 0RF
furosemide 40 mg tablet
40 mg PO DAILY Qty: 90 3RF
magnesium 200 mg Tablet
200 mg PO HS
diltiazem HCl [Tiadylt ER] 360 mg Capsule,Extended Release 24 Hr
360 mg PO DAILY
Culturelle 10 billion cell Capsule
1 cap PO HS
Fish Oil 1400mg
1 tab PO DAILY@1400
flecainide 100 mg Tablet
50 mg PO Q12H
Referrals:
Kris Sharpe MD [Active, Orthopedics] - Follow up in 2-3 days
Leif Christiansen MD [Family Provider, Internal Medicine] - Follow up in 2-3 days
Interventions
Interventions:
*Risk Screen - Suicide Last Done: 08/18/25 13:48
*General Assessment Last Done: 08/18/25 14:40
*Neglect/Abuse Screening Last Done: 08/18/25 13:48
*ED- Fall Risk Assessment Last Done: 08/18/25 14:40
*ED COVID-19 Vaccine History Last Done: 08/18/25 14:40
ED-Musculoskeletal Assessment Last Done: 08/18/25 14:56
ED- Neurological Assessment Last Done: 08/18/25 14:56
ED-Skin Assessment Last Done: 08/18/25 14:56
Discharge Date and Time
Print Language: UKRAINIAN
[2025-08-18 14:39] VITALS: BMI 41.7
[2025-08-18] MEDS: ADACEL 0.5 ML IM (14:42)
[2025-08-18 14:55] VITALS: BP 120/91
[2025-08-18 16:26] VITALS: BP 132/62
--- NOTE | 2025-08-18 16:45 | EDRN ---
Dr. Haines said pt can eat and drink and given a cup of ice water at this time that she had requested.
--- NOTE | 2025-08-18 16:53 | EDRN ---
Dr. Haines in room w/ pt.
== END 2025-08-18 17:05 | disposition home or self-care (01) ==
LOC: EMR 13:46
PROVIDERS: EMERGENCY PHYSICIAN Emergency Medicine; FAMILY PHYSICIAN Internal Medicine
DX: S09.90XA Unspecified injury of head, initial encounter (principal); S63.501A Unspecified sprain of right wrist, initial encounter; S80.01XA Contusion of right knee, initial encounter; S01.111A Laceration without foreign body of right eyelid and periocular area, initial encounter; K08.89 Other specified disorders of teeth and supporting structures; I48.91 Unspecified atrial fibrillation; I11.0 Hypertensive heart disease with heart failure; I50.9 Heart failure, unspecified; E78.00 Pure hypercholesterolemia, unspecified; Z23 Encounter for immunization; Z79.01 Long term (current) use of anticoagulants; W01.10XA Fall on same level from slipping, tripping and stumbling with subsequent striking against unspecified object, initial encounter
CPT/HCPCS: 99284; 12011; 90471; 70450; 70486; 72125; 73110; 73564; 90715